=== PATIENT | female | born 1935 | race Caucasian/White ===

== ENCOUNTER 2018-04-06 21:42 | Emergency (ER) | payer OTHER ==
[~2018-04-06] VITALS: Ht 144.8 cm; Wt 63.5 kg
--- NOTE | 2018-04-06 21:51 | NUR ---
Pt bib daughter with stable gait with the c/o lower back pain radiating to left lower extremity x 1 week. Per daughter, pt had elevated SBP (170's-180's) today and took hyzaar [employer]. VSS. Respirations even and unlabored. Safe environment implemented.
[2018-04-06] MEDS ORDERED: METO-357 PO (21:55)
[2018-04-06] MEDS ORDERED: LOSA1TAB36 PO (21:55)
[2018-04-06] MEDS ORDERED: ATOR10TA PO (21:55)
[2018-04-06] MEDS ORDERED: DICL75TA5 PO (21:55)
[2018-04-06] MEDS ORDERED: HYDROMORPHONE 1 MG/1 ML DISP.SYRIN ONE (22:26)
[2018-04-06] MEDS ORDERED: ONDANSETRON ODT 4 MG TAB.RAPDIS ONE (22:26)
[2018-04-06] MEDS ORDERED: CYCLOBENZAPRINE HCL 10 MG TABLET ONE (22:26)
[2018-04-06] MEDS ORDERED: ONDANSETRON ODT 4 MG TAB.RAPDIS SL ONE (22:30)
[2018-04-06] MEDS ORDERED: CYCLOBENZAPRINE HCL 10 MG TABLET PO ONE (22:30)
[2018-04-06] MEDS ORDERED: HYDROMORPHONE 1 MG/1 ML DISP.SYRIN IM ONE (22:30)
--- NOTE | 2018-04-06 22:57 | NUR ---
Per ER MD, pt will be in ER until official xray results are back.
--- NOTE | 2018-04-07 00:10 | NUR ---
electromyographic technician called for xray CD.
--- NOTE | 2018-04-07 00:25 | NUR ---
Patient discharged to home in stable conditon. Written and verbal after care instructions given. Patient verbalizes understanding of instructions. Patient ambulated out of ER with stable gait.
[2018-04-07 00:28] VITALS: BP 120/68
== END 2018-04-07 00:25 | disposition home or self-care (01) ==
LOC: ER 21:43
DX: M54.42 Lumbago with sciatica, left side (principal); R07.89 Other chest pain; R93.89 Abnormal findings on diagnostic imaging of other specified body structures; Z79.899 Other long term (current) drug therapy
CPT/HCPCS: 71045; 72100; 96372; 99283; J1170; A4663; Q0162

== ENCOUNTER 2021-03-17 10:41 | Emergency (ER) | payer MEDICARE, OTHER ==
[~2021-03-17] VITALS: Ht 160 cm; Wt 68.0 kg
[~2021-03-17 10:41] MED LIST: ATOR10TA PO; DICL75TA5 PO; LOSA1TAB36 PO; METO-357 PO
[2021-03-17] MEDS ORDERED: ONDANSETRON 4 MG/2 ML VIAL IV ONE (11:30)
[2021-03-17] MEDS ORDERED: MORPHINE SULFATE 2 MG/1 ML DISP.SYRIN IV ONE (11:30)
[2021-03-17] MEDS ORDERED: MORPHINE SULFATE 2 MG/1 ML DISP.SYRIN ONE (11:40)
[2021-03-17] MEDS ORDERED: ONDANSETRON 4 MG/2 ML VIAL ONE (11:40)
[2021-03-17 11:57] LABS: HEMATOCRIT 36.5 % (31.2-41.9); MEAN CORPUSCULAR HEMOGLOBIN 29.1 uug (24.7-32.8); MEAN CORPUSCULAR VOLUME 86.9 fL (75.5-95.3); PLATELET COUNT (AUTO) 124 K/uL (179-408)
[2021-03-17] MEDS ORDERED: APIX2.5T PO (12:09)
--- NOTE | 2021-03-17 12:19 | NUR ---
med recon was provided by daughter over the phone. satish farmer [phone]
[2021-03-17 12:37] LABS: BILIRUBIN,DIRECT 0.2 mg/dL (0.0-0.2); CREATININE 0.7 mg/dL (0.6-1.3); TOTAL PROTEIN, SERUM 7.1 g/dL (6.4-8.2)
[2021-03-17 13:01] LABS: POTASSIUM 3.8 mmol/L (3.5-5.1)
[2021-03-17 13:32] LABS: *BILIRUBIN,URIN NEGATIVE (NEGATIVE); *CLARITY,URINE SLIGHTLY CLOUDY (CLEAR); *COLOR,URINE YELLOW (YELLOW); *KETONES,URINE NEGATIVE (NEGATIVE); *UROBILINOGEN,URINE 0.2 E.U./dl (NORMAL); LEUKOCYTE ESTERASE ,URINE NEGATIVE (NEGATIVE); NITRITE, URINE NEGATIVE (NEGATIVE); UGLUCOSE NEGATIVE (NEGATIVE)
[2021-03-17 13:44] LABS: *BLOOD, URINE TRACE (NEGATIVE)
[2021-03-17 14:08] LABS: BACTERIA,URINE NONE SEEN /HPF (NONE SEEN); RBC,URINE NONE SEEN /HPF (0-3); WBC,URINE 0-3 /HPF (0-3)
[2021-03-17 14:09] LABS: MUCUS,URINE FEW /LPF (0-FEW); SQUAMOUS EPITHELIAL CELL,UR FEW /HPF (NONE SEEN)
[2021-03-17] MEDS ORDERED: MORPHINE SULFATE 4 MG/1 ML DISP.SYRIN IV ONE (16:00)
[2021-03-17] MEDS ORDERED: MORPHINE SULFATE 4 MG/1 ML DISP.SYRIN ONE (16:07)
--- NOTE | 2021-03-17 17:30 | NUR ---
sandwich and juice provided for pt.
--- NOTE | 2021-03-17 17:43 | NUR ---
pt mentions that she has pain in the right shoulder,md notified
--- NOTE | 2021-03-17 20:08 | NUR ---
pt a/o no signs of pain noted. no sob or pain.
--- NOTE | 2021-03-17 22:06 | NUR ---
documents faxed to case resource manager at [facility] at fax number [phone]
--- NOTE | 2021-03-17 22:32 | NUR ---
second call placed to [facility].
--- NOTE | 2021-03-17 22:43 | NUR ---
Spoke with [place] with [facility]. Accepting doctor is Dr. Bright, they will call back with transport and bed number.
--- NOTE | 2021-03-18 00:37 | NUR ---
V[facility] called still arranging for transport.
--- NOTE | 2021-03-18 02:30 | NUR ---
pt with eyes closed, awakens to verbal no signs of pain noted.
--- NOTE | 2021-03-18 08:20 | NUR ---
Monica Epstein ([phone]) will be taking over to arrange pt transport. States working on transport and bed assignment. Will call us back once updates are available.
--- NOTE | 2021-03-18 08:47 | NUR ---
cost control supervisor ETA [phone], per Monica.
[2021-03-18] MEDS ORDERED: ONDANSETRON 4 MG/2 ML VIAL IV ONE (09:45)
[2021-03-18] MEDS ORDERED: ONDANSETRON 4 MG/2 ML VIAL ONE (09:45)
[2021-03-18] MEDS ORDERED: MORPHINE SULFATE 4 MG/1 ML DISP.SYRIN IV ONE (09:45)
[2021-03-18] MEDS ORDERED: MORPHINE SULFATE 4 MG/1 ML DISP.SYRIN ONE (09:45)
[2021-03-18 11:48] LABS: HEMATOCRIT 35.7 % (31.2-41.9); MEAN CORPUSCULAR HEMOGLOBIN 29.4 uug (24.7-32.8); MEAN CORPUSCULAR VOLUME 87.7 fL (75.5-95.3); PLATELET COUNT (AUTO) 111 K/uL (179-408)
[2021-03-18 11:49] LABS: CREATININE 0.9 mg/dL (0.6-1.3); POTASSIUM 4.1 mmol/L (3.5-5.1)
--- NOTE | 2021-03-18 12:46 | NUR ---
Pt continues to be in stable condition, no acute distress at this time. VSS. Transport is here, awaiting update on destination for pt. Pt and Daughter aware of change in plan. Daughter receiving updates from Monica ([employer]).
--- NOTE | 2021-03-18 13:00 | NUR ---
Saline lock removed by pt. States moving around while asleep. Provider aware.
--- NOTE | 2021-03-18 13:05 | NUR ---
Transfer information provided by Monica; daughter aware of infromation. Transport at bedside. Pt denies need for medication before transport.
--- NOTE | 2021-03-18 13:20 | NUR ---
Report given to JC Callejas from [facility]. Pt will be going to [id number]. Pt refused pain meds before tranport. Pt transported in stable condition.
[2021-03-18 13:39] VITALS: BP 101/59
== END 2021-03-18 13:30 ==
LOC: ER 10:44
DX: S32.511A Fracture of superior rim of right pubis, initial encounter for closed fracture (principal); S32.591A Other specified fracture of right pubis, initial encounter for closed fracture; W01.0XXA Fall on same level from slipping, tripping and stumbling without subsequent striking against object, initial encounter; Y92.89 Other specified places as the place of occurrence of the external cause; S09.90XA Unspecified injury of head, initial encounter; K76.9 Liver disease, unspecified; I48.20 Chronic atrial fibrillation, unspecified; Z79.01 Long term (current) use of anticoagulants; Z95.1 Presence of aortocoronary bypass graft; Z79.899 Other long term (current) drug therapy; M16.0 Bilateral primary osteoarthritis of hip; M85.88 Other specified disorders of bone density and structure, other site; Z20.822 Contact with and (suspected) exposure to COVID-19
CPT/HCPCS: 36415 ×2; 70450; 71045; 72125; 72128; 72170; 72192; 73030; 73502 ×2; 73551 ×2; 80048 ×2; 80076; 81001; 84484; 85025 ×2; 85730; 87426; 93005; 96374; 96375; 96376 ×2; 99285; J2270 ×3; J2405 ×2; 70030-TC; A4663